=== PATIENT | female | born 1980 | race American Indian/Alaskan Native ===

== ENCOUNTER 2018-07-04 11:19 | Outpatient (CLI) | payer MEDICAID ==
--- NOTE | 2018-07-07 13:05 | Mammography Report ---
BILATERAL DIGITAL DIAGNOSTIC MAMMOGRAM and RIGHT BREAST ULTRASOUND: 07/04/18 11:19:00 CLINICAL: Recalled for bilateral asymmetries. COMPARISON:06/24/18 screening FINDINGS: Additional mammographic views of the left breast were performed and are negative.Partial effacement of an outer right asymmetry and satisfactory effacement of right upper asymmetries with spot compression. Ultrasound of the right breast (including all four quadrants and the retroareolar area) was performed and demonstrated normal fibroglandular and fatty structures. No mass, cyst or shadowing. IMPRESSION: Negative mammogram and negative right breast ultrasound. BI-RADS CATEGORY: 1 -- Negative RECOMMENDATION: Routine mammographic screening in one year. ACR BI-RADS MAMMOGRAPHIC CODES: 0 = Needs additional imaging evaluation; 1 = Negative; 2 = Benign; 3 = Probably benign; 4 = Suspicious; 5 = Malignant; 6 = Known biopsy-proven malignancy COMMENT: 1. Dense breast tissue, i.e., adenosis, fibrocystic changes, etc., may obscure an underlying neoplasm. 2. Approximately 10% of cancers are not detected with mammography. 3. A negative mammography report should not delay biopsy if a clinically suspicious mass is present. COMMENT: Patient follow-up letters are generated via our [employer] application.
== END 2018-07-04 11:20 | disposition home or self-care (01) ==
LOC: SPVWC 11:19
PROVIDERS: ATTEND Obstetrics & Gynecology
DX: N64.89 Other specified disorders of breast (principal); I10 Essential (primary) hypertension; F32.9 Major depressive disorder, single episode, unspecified; M19.90 Unspecified osteoarthritis, unspecified site
CPT/HCPCS: 77066

== ENCOUNTER 2020-12-23 14:08 | Outpatient (CLI) | payer MEDICAID ==
--- NOTE | 2020-12-23 19:19 | Ultrasound Report ---
CLINICAL DATA: NONTOXIC GOITER TECHNICAL DATA: High-resolution grayscale images of the thyroid gland were obtained. Doppler imaging was performed. FINDINGS: The right thyroid lobe measures 3.6 x 1.4 x 1.3 cm. The left thyroid lobe measures 4.3 x 1.0 x 1.2 cm . The thyroid isthmus measures 0.4 cm. The thyroid parenchyma is heterogeneous in echogenicity. One score is assigned from each of the following categories: - NODULE # 1 - Location: - Size (cm): - Significant Change (>= 20% in 2 dim. & inc. >= 2mm): No prior study - Composition: - Echogenicity: - Shape: - Margin: - Echogenic Foci: None = 0 points - Additional Echogenic Foci: None = 0 points - Additional Findings: None. - ACR TI-RADS Score / Category = IMPRESSION: No evidence of a mass or cyst identified ACR TI-RADS is a reporting system for thyroid nodules on ultrasound proposed by the [employer] (ACR) 1. This uses a standardised scoring system for reports providing users with recommendations for when to use fine needle aspiration (FNA) or ultrasound follow-up of suspicious nodules, and when to safely le ave alone nodules that are benign/not suspicious. Ultrasound features Scoring is determined from five categories of ultrasound findings (figure 2). The higher the cumulati ve score, the higher the TR level and likelihood of malignancy. The findings in each category were detailed in the ACR committee's 2015 publication on a reporting le xicon 2. If multiple nodules ( 4) are present only the four highest scoring nodules, not necessarily the largest, should be scored, reported, and followed up. Scoring and classification TR1: 0 points benign TR2: 2 points not suspicious TR3: 3 points mildly suspicious TR4: 4-6 points moderately suspicious TR5: 7 points highly suspicious Recommendations TR1: no FNA required TR2: no FNA required TR3: 1.5 cm follow up, 2.5 cm FNA follow up: 1, 3 and 5 years TR4: 1.0 cm follow up, 1.5 cm FNA follow up: 1, 2, 3 and 5 years TR5: 0.5 cm follow up, 1.0 cm FNA annual follow up for up to 5 years. Signer Name: Bernardo Hammer MD Signed: 12/23/2020 7:15 PM Workstation Name: [id number]
== END 2020-12-23 14:09 | disposition home or self-care (01) ==
LOC: US 14:08
PROVIDERS: ATTEND Internal Medicine
DX: E04.9 Nontoxic goiter, unspecified (principal)
CPT/HCPCS: 76536